=== PATIENT | female | born 1990 | race Caucasian/White ===

== ENCOUNTER → 2022-12-15 | Outpatient (CLI) | payer OTHER ==
[~2022-12-15] MED LIST: AMOXICILLIN500 MG PO; BACTRIM DS 8001 TA1 PO; CLARITIN10 MG PO; KEFLEX500 MG PO; MEDROL DOSEPAK4 MG PO; MOTRIN800 MG PO; NKHM; TESSALON PERLE200 MG PO; ZITHROMAX Z PA250 MG PO
[2022-12-17 20:07] LABS: TB1 Ag VALUE 0.17 IU/mL (.)
== END | disposition home or self-care (01) ==
LOC: LAB 14:08
PROVIDERS: ATTEND Nurse Practitioner
DX: Z00.00 Encounter for general adult medical examination without abnormal findings (principal)

== ENCOUNTER → 2022-12-21 | Outpatient (CLI) | payer OTHER ==
[2022-12-22 07:06] LABS: MUMPS ANTIBODIES, IGG 91.4 AU/mL (Immune >10.9)
[2022-12-22 08:08] LABS: HEPATITIS A AB, TOTAL Positive (Negative)
[2022-12-28 08:08] LABS: N. MENINGITIDIS TYPE A IGG 3.8 ug/mL (.); N. MENINGITIDIS TYPE C IGG <0.4 ug/mL (.); N. MENINGITIDIS TYPE W-135 IGG 0.2 ug/mL (.); N. MENINGITIDIS TYPE Y IGG 1.2 ug/mL (.)
== END | disposition home or self-care (01) ==
LOC: LAB 11:26
PROVIDERS: ATTEND Nurse Practitioner
DX: Z00.00 Encounter for general adult medical examination without abnormal findings (principal)

== ENCOUNTER → 2023-08-09 | Outpatient (CLI) | payer OTHER | END | disposition home or self-care (01) | LOC: LAB 09:38 | PROVIDERS: ATTEND Nurse Practitioner | DX: Z00.00 Encounter for general adult medical examination without abnormal findings (principal) ==